=== PATIENT | female | born 1985 | race American Indian/Alaskan Native ===

== ENCOUNTER 2018-03-19 09:36 | Emergency (ER) | payer MEDICAID ==
--- NOTE | 2018-03-19 10:33 | C.PDOC ---
History Of Present Illness 32 y/o female presents to ED for evaluation of heavy vaginal bleeding for the past month. Notes she was 12 weeks in December, had D&C procedure on , and started control afterwards. Notes she continues to have intermittent vaginal bleeding, and reports that bleeding was heavier last night with clots which prompted her to visit ED today. She admits to feeling tired. Otherwise, denies chest pain, shortness of breath, dizziness, lightheadedness, palpitations, abdominal pain, n/v/d, or fever. Time Seen by Provider: 03/19/18 09:55 Chief Complaint (Nursing): Female Genitourinary History Per: Patient History/Exam Limitations: no limitations Onset/Duration Of Symptoms: Days Current Symptoms Are (Timing): Still Present Associated Symptoms: denies: Loss Of Appetite, Back Pain, Chest Pain, Constipation, Urinary Symptoms Alleviating Factors: None Recent travel outside of the [place]: No Additional History Per: Patient Abnormal Vaginal Bleeding: Yes Past Medical History Reviewed: Historical Data, Nursing Documentation, Vital Signs Vital Signs: Last Vital Signs Temp 98.2 F 03/19/18 12:46 Pulse 91 H 03/19/18 12:46 Resp 18 03/19/18 12:46 BP 133/80 03/19/18 12:46 Pulse Ox 98 03/19/18 13:02 Family History: States: Unknown Family Hx - Social History Hx Alcohol Use: Yes Hx Substance Use: No Review Of Systems Except As Marked, All Systems Reviewed And Found Negative. Constitutional: Negative for: Fever, Chills Cardiovascular: Negative for: Chest Pain, Palpitations, Light Headedness Respiratory: Negative for: Cough, Shortness of Breath Gastrointestinal: Negative for: Nausea, Vomiting, Abdominal Pain, Diarrhea Genitourinary: Positive for: Vaginal Bleeding. Negative for: Dysuria, Frequency , Pelvic Pain Musculoskeletal: Negative for: Back Pain Neurological: Negative for: Headache, Dizziness Physical Exam - Physical Exam Appears: Non-toxic, No Acute Distress Skin: Normal Color, Warm, Dry Head: Atraumatic, Normacephalic Eye(s): bilateral: Normal Inspection Nose: Normal Oral Mucosa: Moist Neck: Normal ROM, Supple Cardiovascular: Rhythm Regular, No Murmur Respiratory: Normal Breath Sounds, No Rales, No Rhonchi, No Wheezing Gastrointestinal/Abdominal: Soft, No Tenderness Back: No CVA Tenderness Extremity: Normal ROM Neurological/Psych: Oriented x3, Normal Speech ED Course And Treatment - Laboratory Results Result Diagrams: 03/19/18 10:33 03/19/18 10:33 O2 Sat by Pulse Oximetry: 98 (RA) Pulse Ox Interpretation: Normal - CT Scan/US Transvag US Other Rad Studies (CT/US): Read By Radiologist, Radiology Report Reviewed CT/US Interpretation: Findings: Uterus: 11.0 x 4.6 x 6.4 centimeters. Heterogeneous echotexture. Anteverted. Thickened and heterogeneous endometrium measuring 2.3 centimeters with associated vascularity. No free fluid in pelvic cul-de-sac. Right ovary: 3.5 x 1.6 x 3.2 centimeters. Normal flow. Left ovary: 3.5 x 1.2 x 3.5 centimeters. Normal flow. Nabothian cysts noted at the level of the cervix. Urine HCG is negative. Beta HCG of 11. Impression: Status post D&C. Thickened heterogeneous endometrium measuring 2.3 centimeters with associated vascularity. This may represent retained products of conception. Clinical correlation. Nabothian cysts noted at the level cervix. Progress Note: Blood work, Urinalysis, Transvaginal ultrasound ordered and reviewed. On re-eval, pt is resting comfortably, no acute distress. Denies dizziness, lightheadedness, or shortness of breath. Case endorsed to ELENA Lezama pending re-evaluation and ob consult. Disposition - Disposition Disposition Time: 13:20 Condition: STABLE Forms: [facility] (Amharic) - Clinical Impression Clinical Impression: Vaginal bleeding, Retained products of conception - PA / GAS DISPENSER / Resident Statement MD/DO has reviewed & agrees with the documentation as recorded. - Scribe Statement The provider has reviewed the documentation as recorded by the Scribe All medical record entries made by the Scribe were at my direction and personally dictated by me. I have reviewed the chart and agree that the record accurately reflects my personal performance of the history, physical exam, medical decision making, and the department course for this patient. I have also personally directed, reviewed, and agree with the discharge instructions and disposition.
[2018-03-19 10:40] LABS: BASO % 0.7 % (0.0-2.0); EOS # 0.1 K/uL (0.0-0.7); EOS % 1.7 % (0.0-4.0); HEMOGLOBIN 13.4 g/dL (11.0-16.0); LYMPH # 1.5 K/uL (1.0-4.3); LYMPH % 27.9 % (20.0-40.0); MEAN CELL VOLUME 93.8 fL (81.0-99.0); MEAN CORPUSCULAR HEMOGLOBIN 32.5 pg (27.0-31.0); MEAN CORPUSCULAR HGB CONC 34.6 g/dL (33.0-37.0); MEAN PLATELET VOLUME 9.7 fL (7.2-11.7); MONO # 0.5 K/uL (0.0-0.8); MONO % 9.1 % (0.0-10.0); NEUT # 3.3 K/uL (1.8-7.0); NEUT % 60.6 % (50.0-75.0); NRBC % 0.2 % (0.0-2.0); RBC 4.12 Mil/uL (3.80-5.20); RED CELL DISTRIBUTION WIDTH 13.9 % (11.5-14.5); WHITE BLOOD COUNT 5.4 K/uL (4.8-10.8)
[2018-03-19 10:51] LABS: SQUAMOUS EPITHIAL 6 /hpf (0-5); URINE BACTERIA RARE (<OCC); URINE BILIRUBIN NEGATIVE (NEGATIVE); URINE BLOOD 3+ (NEGATIVE); URINE CLARITY Clear (Clear); URINE COLOR Yellow (YELLOW); URINE GLUCOSE (UA) NORMAL (Normal); URINE LEUKOCYTE ESTERASE TRACE Leu/uL (Negative); URINE PROTEIN NEGATIVE (NEGATIVE)
[2018-03-19 10:56] LABS: ALB/GLOB RATIO 1.3 (1.0-2.1); ALBUMIN 4.4 g/dL (3.5-5.0); GFR AFRICAN-AMERICAN > 60; GFR NON-AFRICAN AMERICAN > 60
[2018-03-19 11:04] LABS: HCG,QUALITATIVE URINE NEGATIVE (NEGATIVE)
[2018-03-19 11:08] LABS: ALT/SGPT 20 U/L (9-52); AST/SGOT 35 U/L (14-36); BLOOD UREA NITROGEN 7 mg/dL (7-17)
[2018-03-19 12:47] VITALS: PULSE 91
--- NOTE | 2018-03-19 12:51 | US ---
Pelvic ultrasound History: Status post D and C. Pelvic pain. Bleeding. Comparison: None available. Technique: Real-time sonography was performed through the pelvis utilizing transabdominal and transvaginal techniques. Findings: Uterus: 11.0 x 4.6 x 6.4 centimeters. Heterogeneous echotexture. Anteverted. Thickened and heterogeneous endometrium measuring 2.3 centimeters with associated vascularity. No free fluid in pelvic cul-de-sac. Right ovary: 3.5 x 1.6 x 3.2 centimeters. Normal flow. Left ovary: 3.5 x 1.2 x 3.5 centimeters. Normal flow. Nabothian cysts noted at the level of the cervix. Urine HCG is negative. Beta HCG of 11. Impression: Status post D&C. Thickened heterogeneous endometrium measuring 2.3 centimeters with associated vascularity. This may represent retained products of conception. Clinical correlation. Nabothian cysts noted at the level cervix.
[2018-03-19 12:52] VITALS: O2SAT 98
[2018-03-19 14:25] VITALS: BP 118/80; RESP 20; TEMP 98.9
--- NOTE | 2018-03-19 15:38 | CP.PCM.CON ---
History of Present Illness - History of Present Illness History of Present Illness: Pt is a 32yo states last normal menses in 10/17. Pt states on 01/13/18 she found out she was and went for termination on 01/27 at which time she was ~12wks. She states she began her OCP, [facility], 3days later. Pt states since that since starting the ocps she has had bleeding. She presented today with c/o bleeding and passing clots. she denies syncope, palpitations, and states no coitus x1mo Review of Systems - Constitutional Constitutional: absent: Anorexia, Chills, Weakness - Cardiovascular Cardiovascular: absent: Chest Pain, Dyspnea, Palpitations - Respiratory Respiratory: absent: Dyspnea on Exertion - Gastrointestinal Gastrointestinal: absent: Abdominal Pain Past Patient History - Past Medical History & Family History Past Medical History?: No - Past Social History Smoking Status: Never Smoked Alcohol: Other (drinks on weekends) Drugs: Denies - PSYCHIATRIC Hx Substance Use: No - SURGICAL HISTORY Hx Surgeries: Yes Hx Dilation and Curettage: Yes - ANESTHESIA Hx Anesthesia: Yes Hx Anesthesia Reactions: No Meds Allergies/Adverse Reactions: Allergies Allergy/AdvReac Type Severity Reaction Status Date / Time shellfish derived Allergy Verified 03/19/18 09:50 Physical Exam - Constitutional Appears: Well, No Acute Distress - Head Exam Head Exam: ATRAUMATIC, NORMOCEPHALIC - Respiratory Exam Respiratory Exam: NORMAL BREATHING PATTERN - GI/Abdominal Exam GI & Abdominal Exam: Soft. absent: Firm, Guarding, Rebound, Tenderness - Neurological Exam Neurological exam: Oriented x3 - Psychiatric Exam Psychiatric exam: Normal Affect, Normal Mood Results - Vital Signs Recent Vital Signs: Last Vital Signs Temp 98.9 F 03/19/18 14:25 Pulse 91 H 03/19/18 14:25 Resp 20 03/19/18 14:25 BP 118/80 03/19/18 14:25 Pulse Ox 98 03/19/18 14:25 - Labs Result Diagrams: 03/19/18 10:33 03/19/18 10:33 Labs: Laboratory Results - last 24 hr 03/19/18 03/19/18 03/19/18 10:33 10:33 10:33 WBC 5.4 RBC 4.12 Hgb 13.4 Hct 38.6 MCV 93.8 MCH 32.5 H MCHC 34.6 RDW 13.9 Plt Count 185 MPV 9.7 Neut % (Auto) 60.6 Lymph % (Auto) 27.9 Ashley % (Auto) 9.1 Eos % (Auto) 1.7 Baso % (Auto) 0.7 Neut # (Auto) 3.3 Lymph # (Auto) 1.5 Ashley # (Auto) 0.5 Eos # (Auto) 0.1 Baso # (Auto) 0.0 Sodium 145 Potassium 4.2 Chloride 106 Carbon Dioxide 27 Anion Gap 16 BUN 7 Creatinine 0.8 Est GFR ( Amer) > 60 Est GFR (Non-Af Amer) > 60 Random Glucose 88 Calcium 9.0 Total Bilirubin 1.1 AST 35 ALT 20 Alkaline Phosphatase 69 Total Protein 7.8 Albumin 4.4 Globulin 3.5 Albumin/Globulin Ratio 1.3 Beta HCG, Quant 11.13 Urine Color Yellow Urine Clarity Clear Urine pH 7.0 Ur Specific [place] 1.015 Urine Protein Negative Urine Glucose (UA) Normal Urine Ketones Negative Urine Blood 3+ H Urine Nitrate Negative Urine Bilirubin Negative Urine Urobilinogen 4.0 H Ur Leukocyte Esterase Trace Urine WBC (Auto) 6 H Urine RBC (Auto) 137 H Ur Squamous Epith Cells 6 H Urine Bacteria Rare Urine HCG, Qual Negative Blood Type Antibody Screen 03/19/18 10:33 WBC RBC Hgb Hct MCV MCH MCHC RDW Plt Count MPV Neut % (Auto) Lymph % (Auto) Ashley % (Auto) Eos % (Auto) Baso % (Auto) Neut # (Auto) Lymph # (Auto) Ashley # (Auto) Eos # (Auto) Baso # (Auto) Sodium Potassium Chloride Carbon Dioxide Anion Gap BUN Creatinine Est GFR ( Amer) Est GFR (Non-Af Amer) Random Glucose Calcium Total Bilirubin AST ALT Alkaline Phosphatase Total Protein Albumin Globulin Albumin/Globulin Ratio Beta HCG, Quant Urine Color Urine Clarity Urine pH Ur Specific [place] Urine Protein Urine Glucose (UA) Urine Ketones Urine Blood Urine Nitrate Urine Bilirubin Urine Urobilinogen Ur Leukocyte Esterase Urine WBC (Auto) Urine RBC (Auto) Ur Squamous Epith Cells Urine Bacteria Urine HCG, Qual Blood Type B POSITIVE Antibody Screen Negative - Imaging and Cardiology US - abdomen Status: Image reviewed by me, Report reviewed by me (pelvic us reviewed and d/w radiologist) Assessment & Plan - Assessment and Plan (Free Text) Assessment: I: Irregular bleeding most likely 2ndary to ocps Faintly + QHCG 11 P: d/c ocps f/u with tank filler dr in 1wk for f/u us. pt advised that us had questionable area of retained poc vs resolving blood clot.
== END 2018-03-19 14:33 | disposition home or self-care (01) ==
LOC: C.ER 09:36
DX: N93.8 Other specified abnormal uterine and vaginal bleeding (principal)